=== PATIENT | male | born 1945 | race Caucasian/White ===

== ENCOUNTER 2017-04-20 08:49 | Day surgery (SDC) | payer OTHER ==
[2017-04-20] MEDS ORDERED: LR 1,000 ML IV ONE (09:09)
[2017-04-20] MEDS ORDERED: LIDOCAINE 1% 2 ML INJ ID PRN (09:09)
[2017-04-20] MEDS ORDERED: IOTHALAMATE MEG (CONRAY) 50 ML VIAL IV ONE (09:31)
[2017-04-20] MEDS ORDERED: GLUCAGON,HUMAN RECOMBINANT 1 MG VIAL ONE (09:31)
--- NOTE | 2017-04-20 11:04 | PDGENHP ---
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 Cardiac: RRR. Lungs: CTA B. Abd: Soft, nt, nd
[2017-04-20] MEDS ORDERED: fentaNYL 100 MCG/2 ML INJ IVP PRN (11:07)
[2017-04-20] MEDS ORDERED: ONDANSETRON 4 MG/2 ML VIAL IVP PRN (11:07)
[2017-04-20] MEDS ORDERED: MEPERIDINE 25 MG/ML SYR IVP PRN (11:07)
[2017-04-20] MEDS ORDERED: OXYCODONE/APAP 5/325 TAB PO PRN (11:07)
[2017-04-20] MEDS ORDERED: ALBUTEROL 3 ML DEYVIAL IH PRN (11:07)
[2017-04-20] MEDS ORDERED: NALOXONE HCL 0.4 MG/ML INJ IVP PRN (11:07)
--- NOTE | 2017-04-20 11:07 | PDANEPAE ---
ANE History of Present Illness egd,,eus ANE Past Medical History - Cardiovascular History Hx Hypertension: No Hx Arrhythmias: No Hx Chest Pain: No Hx Coronary Artery / Peripheral Vascular Disease: Yes Hx CHF / Valvular Disease: No Hx Palpitations: No Cardiovascular History Comment: PT DENIES HX OF AR. 2009 3x CABG. 2013 CARDIAC STENT. 2015 CARDIAC STENT. 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 SELF-CATHETERIZES - Liver History Hx Hepatic Disorders: No - Neurological & Psychiatric Hx Hx Neurological and Psychiatric Disorders: No - Cancer History Hx Cancer: No - Congenital Disorder History Hx Congenital Disorders: No - GI History Hx Gastrointestinal Disorders: Yes Gastrointestinal History Comment: DIVERTICULITIS. INDEGESTION - Other Health History Other Health History: LLE DVT - Surgical History Prior Surgeries: 2009 CABG. 2008 L4/L5 FUSION. 2009 L3/L4 FUSION. 2011 TURP. 2012 TKR AND RECONSTUCTION OF L FOOT. 2013 CARDIAC STENT. L5/S1 FUSION. 2014 R FOOT RECONSTUCTION. 2015 CARDIAC STENTS. 2016 R ANKLE RECONSTRUCTION ANE Review of Systems - Exercise capacity METS (RN): 4 METS ANE Patient History - Allergies Allergies/Adverse Reactions: Sulfa (Sulfonamide Antibiotics) Allergy (Verified 04/15/17 12:07) SWELLING - Home Medications Home Medications: Aspirin 81mg (*) DAILY 04/15/17 [Last Taken 04/16/17] FLUoxetine DAILY 04/15/17 [Last Taken 04/18/17] Fenofibrate DAILY 04/15/17 [Last Taken 04/18/17] Herbals/Supplements -Info Only DAILY 04/15/17 [Last Taken 04/15/17] Lyrica DAILY 04/15/17 [Last Taken 04/19/17] Oxycodone HCl DAILY 04/15/17 [Last Taken 04/20/17 03:00] Protonix DAILY 04/15/17 [Last Taken 04/19/17] Uloric DAILY 04/15/17 [Last Taken 04/15/17] Vytorin 10-10 mg Tablet DAILY 04/15/17 [Last Taken 04/16/17] - NPO status NPO Since - Liquids (Date): 04/20/17 NPO Since - Liquids (Time): 04:30 NPO Since - Solids (Date): 04/19/17 NPO Since - Solids (Time): 18:00 - Smoking Hx Smoking Status: Former smoker - Family Anes Hx Family Hx Anesthesia Complications: NEG ANE Labs/Vital Signs - Vital Signs Blood Pressure: 112/78 Heart Rate: 71 Respiratory Rate: 20 O2 Sat (%): 93 Height: 182.88 cm Weight: 97.522 kg ANE Physical Exam - Airway Mallampati Score: Class 2 Mouth exam: normal dental/mouth exam - Pulmonary Pulmonary: no respiratory distress - Cardiovascular Cardiovascular: regular rate and rhythym - ASA Status ASA Status: II ANE Anesthesia Plan Anesthesia Plan: GA with mask
--- NOTE | 2017-04-20 11:34 | POSTOPPROG ---
Post Op Note Date of Operation: 04/20/17 Surgeon: Chris Jhaveri Pre-op Diagnosis: gastric carcinoid Post-op Diagnosis: same, food in stomach Indication: gastric carcinoid tumor Procedure: EGD with Bx's Findings: Food in stomach, gastric polyps Inf/Abcess present in the surg proc area at time of surgery?: No
--- NOTE | 2017-04-20 11:39 | POSTANESTH ---
Post Anesthetic Evaluation Cardiovascular Status: Normal, Stable Respiratory Status: Normal, Stable Level of Consciousness/Mental Status: Moderately Sleepy Pain Control: Adequate, Prn Tx Ordered Nausea/Vomiting Control: Adequate, Prn Tx Ordered Complications Possibly Related to Anesthesia: None Noted
[2017-04-20 11:59] VITALS: TEMP 98.4
[2017-04-20] MEDS ORDERED: OXYCODONE/APAP 5/325 TAB ONE (12:14)
[2017-04-20 13:12] VITALS: BP 106/71
[2017-04-20 13:16] VITALS: PULSE 59; RESP 14; O2SAT 98
--- NOTE | 2017-04-20 18:54 | GPN ---
[f rep st] PROCEDURE NOTE PREPROCEDURE DIAGNOSIS: Gastric carcinoid tumor. POSTPROCEDURE DIAGNOSIS: Gastric carcinoid tumor, food in stomach. PROCEDURE: Esophagogastroduodenoscopy with biopsies. COMPLICATIONS: None. BLOOD LOSS: Minimal. BIOPSIES: Yes. INDICATIONS FOR THE PROCEDURE: The patient is a 71-year-old male with a history of a gastric carcin oid tumor. He also had gastric polyps. He is here today for upper endoscopy, endoscopic ultrasound a nd endoscopic mucosal resection. The risks and the benefits of the procedure were discussed with the patient. Consent obtained. Risks include, but are not limited to, bleeding, perforation, risks asso ciated with sedation. The patient is ASA class 2. DESCRIPTION OF PROCEDURE: The endoscope was inserted into the esophagus, into stomach and second po rtion of the duodenum. The esophagus appears normal. The Z-line is regular at 40 cm from the incisor s. The stomach is full of food which obscures the stomach wall visualization. The duodenum appears n ormal. Given the significant amount of food in the stomach, I elected to abort the endoscopic ultrasound an d mucosal resection that were planned for today. I took biopsies of an erythematous area in the antr um using cold biopsy forceps and placed in the 1st bottle. He has several small, 1-2 mm polypoid are as along the lesser curvature which look like they have been previously biopsied and I took biopsies of these and placed these in the lesser curvature bottle. Finally on retroflexed views in the fundu s, I saw a 2 mm polyp, which was biopsied and placed in the gastric cardia jar. This was biopsied ag ain using cold biopsy forceps. I could not visualize the majority of the greater curvature or the pr oximal stomach given the amount of food that was seen. There was no obvious large target for mucosal resection although any of the small polyps could be small carcinoid tumors. IMPRESSION: 1. Food throughout the stomach. 2. Endoscopic ultrasound and mucosal resection not done given the amount of food visualized through out the stomach. 3. Multiple gastric polyps status post biopsies placed in separate jars. 4. Erythema of the gastric antrum, status post biopsies. RECOMMENDATIONS: 1. Discharged home with escort. 2. Advance diet as tolerated. 3. Will need to reschedule these procedures after biopsies are returned for endoscopic ultrasound a nd possible endoscopic mucosal resection. Given the small nature of these gastric carcinoids, if the y are thought to be associated with pernicious anemia, we could ablate these with APC as an alternat gemma method. 4. Followup for final biopsy results. Results available within 10 days. Thank you for allowing me to participate in the care of your patient. Please do not hesitate to call with questions. /[id number]/MODL
== END 2017-04-20 13:16 | disposition home or self-care (01) ==
LOC: FSGY 08:49
PROVIDERS: ATTEND Internal Medicine Gastroenterology
PROC: 0DB68ZX Excision of Stomach, Via Natural or Artificial Opening Endoscopic, Diagnostic (ICD-10-PCS; principal; 2017-04-20 10:00)
DX: D3A.092 Benign carcinoid tumor of the stomach (principal); K31.7 Polyp of stomach and duodenum; N40.1 Benign prostatic hyperplasia with lower urinary tract symptoms; Z95.5 Presence of coronary angioplasty implant and graft; Z95.1 Presence of aortocoronary bypass graft; Z98.1 Arthrodesis status
CPT/HCPCS: J1610; Q9961